=== PATIENT | male | born 1955 | race Caucasian/White ===

== ENCOUNTER 2023-09-04 11:08 | Outpatient (RCR) | payer OTHER, SELFPAY | END 2023-09-04 23:59 | disposition home or self-care (01) | LOC: RPT 11:08 | PROVIDERS: ATTENDING PHYSICIAN Internal Medicine | DX: M54.31 Sciatica, right side (principal) | CPT/HCPCS: 97010; 97110; 97140 ==

== ENCOUNTER 2023-09-29 19:00 | Outpatient (RCR) | payer OTHER, SELFPAY | END 2023-09-29 23:59 | disposition home or self-care (01) | LOC: RPT 19:00 | PROVIDERS: ATTENDING PHYSICIAN Internal Medicine | DX: M54.31 Sciatica, right side (principal); Z73.6 Limitation of activities due to disability | CPT/HCPCS: 97110 ==

== ENCOUNTER 2023-11-05 18:31 | Outpatient (RCR) | payer OTHER, SELFPAY | END 2023-11-05 23:59 | disposition home or self-care (01) | LOC: RPT 18:31 | PROVIDERS: ATTENDING PHYSICIAN Internal Medicine | DX: M54.31 Sciatica, right side (principal); Z73.6 Limitation of activities due to disability | CPT/HCPCS: 97110; 97112; 97140 ==

== ENCOUNTER 2023-12-03 18:03 | Outpatient (RCR) | payer OTHER, SELFPAY | END 2023-12-03 23:59 | disposition home or self-care (01) | LOC: RPT 18:03 | PROVIDERS: ATTENDING PHYSICIAN Internal Medicine | DX: M54.31 Sciatica, right side (principal); Z73.6 Limitation of activities due to disability | CPT/HCPCS: 97010; 97110; 97140 ==

== ENCOUNTER 2023-12-31 19:07 | Outpatient (RCR) | payer OTHER, SELFPAY | END 2023-12-31 23:59 | disposition home or self-care (01) | LOC: RPT 19:07 | PROVIDERS: ATTENDING PHYSICIAN Internal Medicine | DX: M54.31 Sciatica, right side (principal); Z73.6 Limitation of activities due to disability | CPT/HCPCS: 97010; 97110 ==

== ENCOUNTER → 2024-12-08 11:55 | Outpatient (REF) | payer OTHER, SELFPAY ==
[2024-12-08 13:12] LABS: Urine Albumin 2+ (Neg - Trace); Urine Bilirubin Negative (Negative); Urine Character Clear (Clear); Urine Color Yellow; Urine Glucose Negative (Negative); Urine Ketone Negative (Negative); Urine Leukocyte 3+ (Negative); Urine Nitrite Negative (Negative); Urine Occult Blood 4+ (Negative); Urine Urobilinogen Negative (Neg - 1+); Urine pH 6.5 (5.0-9.0)
[2024-12-08 13:41] LABS: Urine Bacteria Moderate (Negative); Urine Red Blood Cell 26-30 /HPF (0-2); Urine White Cell 70-80 /HPF (0-5)
== END ==
LOC: REG 11:55
PROVIDERS: ATTENDING PHYSICIAN Internal Medicine
DX: R30.0 Dysuria (principal)
CPT/HCPCS: 81003; 81015; 87077; 87086; 87186

== ENCOUNTER → 2024-12-16 12:07 | Outpatient (REF) | payer OTHER, SELFPAY ==
[2024-12-16 13:14] LABS: Urine Albumin Negative (Neg - Trace); Urine Bilirubin Negative (Negative); Urine Character Clear (Clear); Urine Color Yellow; Urine Glucose Negative (Negative); Urine Ketone Negative (Negative); Urine Leukocyte 3+ (Negative); Urine Nitrite Negative (Negative); Urine Occult Blood 4+ (Negative); Urine Specific Gravity 1.005 (<1.030); Urine Urobilinogen Negative (Neg - 1+); Urine pH 6.5 (5.0-9.0)
[2024-12-16 13:20] LABS: Urine Squamous Cell 0-2 /LPF (Few)
[2024-12-16 13:21] LABS: Urine Bacteria Few (Negative); Urine White Cell 30-40 /HPF (0-5)
== END ==
LOC: REG 12:07
PROVIDERS: ATTENDING PHYSICIAN Internal Medicine
DX: R30.0 Dysuria (principal)
CPT/HCPCS: 81003; 81015; 87077; 87086; 87186